=== PATIENT | female | born 1955 | race African-American/Black ===

== ENCOUNTER 2019-04-26 17:37 | Emergency (ER) | payer OTHER ==
[~2019-04-26] VITALS: Ht 157.5 cm; Wt 68.2 kg
[~2019-04-26 17:37] MED LIST: AMLODIPINE PO; AMLODIPINE5 MG PO; ASPIRIN CHEWABL81 MG OR; CARB/LEVO SR PO; CELEXA20 M1 PO; CELEXA20 MG PO; CEPHALEXIN500 M1 PO; CEPHALEXIN500 MG PO; CHEMOTHERAPY IV; CIPROFLOXACIN500 M1 OR; ENOXAPARIN40 MG/0.1 SC; FLEXERIL PO; FLUOXETINE PO; HYDROCO/APAP1 TA9 PO; IBUPROFEN600 MG PO; LOPRESSOR25 MG PO; METOPROL TAR25 MG PO; METOPROLOL SUCC25 MG OR; METOPROLOL TART25 MG PO; MOTRIN PM PO; NORVASC10 M1 PO; OXYCODONE/ACETA1 TA1 OR; PRAVASTATIN20 MG PO; PRILOSEC40 MG PO; PROMETHAZINE HC25 MG OR; PROZAC40 MG PO; SIMVASTATIN40 MG OR; SINEMET 25/1001 TA2 OR; SINEMET CR PO; SINEMET PO; TOPROL XL25 MG PO; TRASTUZUMAB IV; TYLENOL 500MG TAB PO; ULTRAM50 M1 PO
[2019-04-26 18:52] LABS: HEMATOCRIT 36.6 % (37.0-47.0); MEAN CELL VOLUME 91.3 fL CALC (80.0-100.0); MEAN CORPUSCULAR HGB 29.7 pG CALC (26.0-32.0); MEAN CORPUSCULAR HGB CONC 32.5 g/L CALC (32.0-36.0); NEUT# 1.94 thou/uL (2.00-7.15); RED BLOOD COUNT 4.01 mill/uL (4.20-5.60)
[2019-04-26 18:53] LABS: HEMOGLOBIN 11.9 g/dl (12.0-16.0)
[2019-04-26 19:16] LABS: URINE BLOOD DIPSTICK MODERATE (NEGATIVE); URINE COLOR YELLOW; URINE GLUCOSE - DIPSTICK NEGATIVE (NEGATIVE); URINE KETONE NEGATIVE (NEGATIVE); URINE LEUK ESTERASE NEGATIVE (NEGATIVE); URINE NITRITE - DIPSTICK NEGATIVE (Negative); URINE PH 5.5 (4.5-8.0); URINE PROTEIN - DIPSTICK TRACE mg/dL (NEG-TRACE); URINE SPECIFIC GRAVITY >=1.030; URINE UROBILINOGEN - DIPSTICK 0.2 E.U./dL (0.2)
[2019-04-26 19:18] LABS: URINE BILIRUBIN - DIPSTICK NEGATIVE (NEGATIVE)
[2019-04-26 19:20] LABS: ALKALINE PHOSPHATASE 113 u/l (38-126); ANION GAP 17 (6-22 (CALC)); BILIRUBIN, TOTAL 0.6 mg/dL (0.0-1.4); BUN 14 mg/dL (8-23); BUN/CREATININE RATIO 16 (12-20 (CALC)); CHLORIDE 104 mmol/l (95-108); CREATININE 0.9 mg/dL (0.5-1.0); GFR > 60 ML/MIN (>=60 (CALC)); GFR FOR AFR.AMER. > 60 ML/MIN (>=60 (CALC)); LIPASE 166 u/l (23-300); POTASSIUM 3.9 mmol/l (3.5-5.1); SGOT/AST 33 u/l (9-36); SODIUM 139 mmol/l (137-146); TOTAL PROTEIN 7.7 g/dL (6.3-8.2)
[2019-04-26 19:25] LABS: CARBON DIOXIDE 22 mmol/l (22-30)
[2019-04-26 19:30] LABS: URINE SQUAMOUS EPITHELIAL CELL FEW EPI/hpf (0-FEW); URINE WBC 0-2 WBC/hpf (0-5)
[2019-04-26 20:30] VITALS: BP 129/78
[2019-04-26] MEDS ORDERED: TRAMADOL HYDROC50 MG PO (20:59)
[2019-04-26] MEDS ORDERED: KEFLEX500 MG PO (20:59)
== END 2019-04-26 21:22 | disposition home or self-care (01) | DRG 690 ==
LOC: ED 17:37
PROVIDERS: Family Medicine
DX: N30.01 Acute cystitis with hematuria (principal); I10 Essential (primary) hypertension; G20 Parkinson's disease
CPT/HCPCS: Q9967

== ENCOUNTER 2021-01-06 05:25 | Emergency (ER) | payer OTHER ==
[~2021-01-06] VITALS: Ht 157.5 cm; Wt 70.0 kg
[~2021-01-06 05:25] MED LIST changes: +KEFLEX500 MG PO; +TRAMADOL HYDROC50 MG PO
[2021-01-06 06:27] LABS: HEMATOCRIT 37.8 % (37.0-47.0); HEMOGLOBIN 12.4 g/dl (12.0-16.0); IMMATURE GRANULOCYTES 0.1 % (0.0-5.0); MEAN CELL VOLUME 90.4 fL CALC (80.0-100.0); MEAN CORPUSCULAR HGB 29.7 pG CALC (26.0-32.0); MEAN CORPUSCULAR HGB CONC 32.8 g/dL CAL (32.0-36.0); NEUT# 10.37 thou/uL (2.00-7.15); RED BLOOD COUNT 4.18 mill/uL (4.20-5.60); RED CELL DISTRI WIDTH 16.4 % (11.5-15.5)
[2021-01-06 06:55] LABS: ALBUMIN 3.8 g/dL (3.2-5.0); ALKALINE PHOSPHATASE 154 u/l (38-126); BUN 12 mg/dL (8-23); BUN/CREATININE RATIO 17 (12-20 (CALC)); CHLORIDE 101 mmol/l (95-108); CREATININE 0.7 mg/dL (0.5-1.0); GFR > 60 ML/MIN (>=60 (CALC)); GFR FOR AFR.AMER. > 60 ML/MIN (>=60 (CALC)); POTASSIUM 3.6 mmol/l (3.5-5.1); SGOT/AST 46 u/l (9-36); SODIUM 135 mmol/l (137-146); TOTAL PROTEIN 7.4 g/dL (6.3-8.2)
[2021-01-06 06:58] LABS: ANION GAP 20 (6-22 (CALC)); BILIRUBIN, TOTAL 0.7 mg/dL (0.0-1.4); CARBON DIOXIDE 18 mmol/l (22-30)
[2021-01-06 07:44] LABS: URINE BLOOD DIPSTICK SMALL (NEGATIVE); URINE GLUCOSE - DIPSTICK NEGATIVE (NEGATIVE); URINE KETONE TRACE mg/dL (NEGATIVE); URINE LEUK ESTERASE NEGATIVE (NEGATIVE); URINE PH 5.5 (4.5-8.0); URINE PROTEIN - DIPSTICK TRACE mg/dL (NEG-TRACE); URINE SPECIFIC GRAVITY >=1.030
[2021-01-06 07:53] LABS: URINE BILIRUBIN - DIPSTICK MODERATE (NEGATIVE); URINE COLOR DK. YELLOW; URINE NITRITE - DIPSTICK NEGATIVE (Negative)
[2021-01-06 07:54] LABS: URINE EPITHELIAL CELLS FEW EPI/hpf (0-FEW); URINE MUCUS MODERATE hpf (NONE-FEW); URINE RBC 0-2 RBC/hpf (0-5)
[2021-01-06] MEDS ORDERED: FLEXERIL5 M1 PO (08:00)
[2021-01-06] MEDS ORDERED: ULTRAM50 MG PO (08:00)
[2021-01-06 08:33] VITALS: BP 96/64
== END 2021-01-06 08:39 | disposition home or self-care (01) | DRG 552 ==
LOC: ED 05:25
PROVIDERS: Emergency Medicine
DX: M54.6 Pain in thoracic spine (principal); D72.829 Elevated white blood cell count, unspecified; I10 Essential (primary) hypertension; F41.9 Anxiety disorder, unspecified; K21.9 Gastro-esophageal reflux disease without esophagitis; G20 Parkinson's disease; I89.0 Lymphedema, not elsewhere classified

== ENCOUNTER 2021-03-24 20:47 | Emergency (ER) | payer OTHER ==
[~2021-03-24] VITALS: Ht 157.5 cm; Wt 61.3 kg
[~2021-03-24 20:47] MED LIST changes: +FLEXERIL5 M1 PO; +ULTRAM50 MG PO
[2021-03-24 21:16] LABS: HEMATOCRIT 35.5 % (37.0-47.0); HEMOGLOBIN 11.4 g/dl (12.0-16.0); IMMATURE GRANULOCYTES 0.3 % (0.0-5.0); MEAN CORPUSCULAR HGB 31.9 pG CALC (26.0-32.0); MEAN CORPUSCULAR HGB CONC 32.1 g/dL CAL (32.0-36.0); NEUT# 2.07 thou/uL (2.00-7.15); RED BLOOD COUNT 3.57 mill/uL (4.20-5.60); RED CELL DISTRI WIDTH 16.9 % (11.5-15.5)
[2021-03-24 21:18] LABS: MEAN CELL VOLUME 99.4 fL CALC (80.0-100.0)
[2021-03-24 21:28] LABS: ALBUMIN 3.6 g/dL (3.2-5.0); ALKALINE PHOSPHATASE 85 u/l (38-126); BUN 12 mg/dL (8-23); BUN/CREATININE RATIO 19 (12-20 (CALC)); CARBON DIOXIDE 21 mmol/l (22-30); CHLORIDE 111 mmol/l (95-108); CREATININE 0.6 mg/dL (0.5-1.0); GFR > 60 ML/MIN (>=60 (CALC)); GFR FOR AFR.AMER. > 60 ML/MIN (>=60 (CALC)); POTASSIUM 3.1 mmol/l (3.5-5.1); SGOT/AST 36 u/l (9-36); TOTAL PROTEIN 6.9 g/dL (6.3-8.2)
[2021-03-24 21:40] LABS: MYOGLOBIN 39 ng/mL (0 - 62)
[2021-03-24 21:44] LABS: ANION GAP 13 (6-22 (CALC)); BILIRUBIN, TOTAL 0.4 mg/dL (0.0-1.4); SODIUM 142 mmol/l (137-146)
[2021-03-24 22:03] LABS: URINE BILIRUBIN - DIPSTICK NEGATIVE (NEGATIVE); URINE BLOOD DIPSTICK TRACE-INTACT (NEGATIVE); URINE COLOR YELLOW; URINE GLUCOSE - DIPSTICK NEGATIVE (NEGATIVE); URINE KETONE TRACE mg/dL (NEGATIVE); URINE PROTEIN - DIPSTICK NEGATIVE (NEG-TRACE); URINE SPECIFIC GRAVITY 1.015; URINE UROBILINOGEN - DIPSTICK 0.2 E.U./dL (0.2)
[2021-03-24 22:05] LABS: URINE LEUK ESTERASE SMALL (NEGATIVE); URINE NITRITE - DIPSTICK NEGATIVE (Negative)
[2021-03-24 22:21] LABS: URINE BACTERIA MODERATE hpf; URINE MUCUS FEW hpf (NONE-FEW); URINE SQUAMOUS EPITHELIAL CELL MANY EPI/hpf (0-FEW)
[2021-03-24] MEDS ORDERED: K-DUR/KLOR-CON20 MEQ PO (22:36)
[2021-03-24 22:45] VITALS: BP 129/60
== END 2021-03-24 22:50 | disposition home or self-care (01) | DRG 948 ==
LOC: ED 20:47
PROVIDERS: Family Medicine
DX: R41.82 Altered mental status, unspecified (principal); E87.6 Hypokalemia; I10 Essential (primary) hypertension; F41.9 Anxiety disorder, unspecified; K21.9 Gastro-esophageal reflux disease without esophagitis; G20 Parkinson's disease; Z85.3 Personal history of malignant neoplasm of breast

== ENCOUNTER 2021-05-15 04:12 | Observation (INO) | payer OTHER ==
[~2021-05-15] VITALS: Ht 157.5 cm; Wt 60.0 kg
[~2021-05-15 04:12] MED LIST changes: +K-DUR/KLOR-CON20 MEQ PO; -TYLENOL 500MG TAB PO; +TYLENOL500 MG PO
--- NOTE | 2021-05-15 07:12 | NUR ---
RECEIVED BEDSIDE REPORT FROM NURSE. PATIENT NOT IN ACUTE DISTRESS.
--- NOTE | 2021-05-15 08:00 | NUR ---
Reassessment of patient completed. No distress noted.
[2021-05-15 08:04] LABS: IMMATURE GRANULOCYTES 0.3 % (0.0-5.0); MEAN CORPUSCULAR HGB 32.7 pG CALC (26.0-32.0); NEUT# 6.32 thou/uL (2.00-7.15); RED CELL DISTRI WIDTH 13.7 % (11.5-15.5)
[2021-05-15 08:05] LABS: HEMATOCRIT 29.7 % (37.0-47.0); HEMOGLOBIN 9.8 g/dl (12.0-16.0)
[2021-05-15 08:50] LABS: ALKALINE PHOSPHATASE 97 u/l (38-126); ANION GAP 8 (6-22 (CALC)); BILIRUBIN, TOTAL 0.6 mg/dL (0.0-1.4); BUN 10 mg/dL (8-23); BUN/CREATININE RATIO 15 (12-20 (CALC)); CARBON DIOXIDE 24 mmol/l (22-30); CHLORIDE 110 mmol/l (95-108); CREATININE 0.7 mg/dL (0.5-1.0); GFR > 60 ML/MIN (>=60 (CALC)); GFR FOR AFR.AMER. > 60 ML/MIN (>=60 (CALC)); POTASSIUM 3.5 mmol/l (3.5-5.1); SGOT/AST 21 u/l (9-36); SODIUM 139 mmol/l (137-146)
--- NOTE | 2021-05-15 09:15 | NUR ---
Reassessment of patient completed. No distress noted.
--- NOTE | 2021-05-15 10:00 | NUR ---
Reassessment of patient completed. No distress noted.
--- NOTE | 2021-05-15 11:00 | NUR ---
Reassessment of patient completed. No distress noted.
--- NOTE | 2021-05-15 12:00 | NUR ---
Reassessment of patient completed. No distress noted.
--- NOTE | 2021-05-15 13:00 | NUR ---
Reassessment of patient completed. No distress noted.
[2021-05-15 14:00] VITALS: BP 117/83
--- NOTE | 2021-05-15 14:00 | NUR ---
Reassessment of patient completed. No distress noted. PATIENT TRANSPORTED TO ICU BED 4 OVERFLOW. REPORT CALLED PRIOR TO TRANSPORTING ON MONITOR. HAND OFF REPORT GIVEN BEDSIDE ALSO TO RAJAT.
--- NOTE | 2021-05-15 14:01 | NUR ---
DAVID WONG is a 65 year old Female. Admitted for left arm swelling she is being treated for cellulitis with Ceftriaxone 1 g24h and Vancoomycin 1 q12h No cultures taken or pending Ht: 62 in, Wt: 60 kg, DW: 60 Kg, SCr: 0.7 mL/min, CrCl (calc) = 77.9 ml/min WBC: 7.5 thou/uL, HR: 72 beats/min, BP: 141/73 mmHg, RR 17 breaths/min, Sa02: 98 % Trough= will be taken on 05/17/21 at 0230 Goal level is 10-15 mg/L. 1. Current dose: Vancomycin 1 g IV q12h at 1500, 0300 2. Check trough on 05/17/21 at 0230 Pharmacy will continue to follow.
[2021-05-15 15:00] VITALS: BP 132/76
[2021-05-15] MEDS ORDERED: CYMBALTA20 MG PO (15:25)
[2021-05-15] MEDS ORDERED: REMERON SOLTAB15 MG PO (15:27)
[2021-05-15] MEDS ORDERED: TRAMADOL HYDROC50 M1 PO (15:28)
[2021-05-15] MEDS ORDERED: MOBIC7.5 M1 PO (15:34)
--- NOTE | 2021-05-15 17:24 | NUR ---
PT ARRIVED TO ROOM AT 1410, PLACED ON MONITOR, AND IN PT GOWN. NO S/S OF DISTRESS NOTED. MEDICATED PER EMAR.
[2021-05-15 18:32] LABS: URINE BILIRUBIN - DIPSTICK NEGATIVE (NEGATIVE); URINE BLOOD DIPSTICK SMALL (NEGATIVE); URINE COLOR YELLOW; URINE GLUCOSE - DIPSTICK NEGATIVE (NEGATIVE); URINE KETONE NEGATIVE (NEGATIVE); URINE LEUK ESTERASE NEGATIVE (NEGATIVE); URINE PH 6.5 (4.5-8.0); URINE PROTEIN - DIPSTICK NEGATIVE (NEG-TRACE); URINE SPECIFIC GRAVITY 1.015; URINE UROBILINOGEN - DIPSTICK 0.2 E.U./dL (0.2)
[2021-05-15 18:42] LABS: URINE NITRITE - DIPSTICK NEGATIVE (Negative)
[2021-05-15 18:43] LABS: URINE SQUAMOUS EPITHELIAL CELL FEW EPI/hpf (0-FEW); URINE WBC 0-2 WBC/hpf (0-5)
--- NOTE | 2021-05-15 19:05 | NUR ---
REPORT FROM RAJAT FLANAGAN. ASSUMED PT CARE.
[2021-05-15 20:00] VITALS: BP 118/59
--- NOTE | 2021-05-15 20:20 | NUR ---
PT NOTED RESTING IN BED. PT WAKES EASILY. A&OX4. NO APPARENT DISTRESS NOTED. PT C/O PAIN IN LEFT ARM 09/11, PT REFUSED TYLENOL STATES WILL WAIT FOR LORTAB WHEN ITS DUE. LEFT ARM ELEVATED ON PILLOWS. VSS. IV SITE APPEARS HEALTHY. MONITORS IN PLACE. DISCUSSED POC AND SAFETY. PT VERBALIZED UNDERSTANDING. PT DENIES ANY CURRENT WANTS OR NEEDS. CALL LIGHT WITHIN REACH. WILL CONTINUE TO MONITOR.
--- NOTE | 2021-05-15 22:52 | NUR ---
PT MEDICATED FOR PAIN IN LEFT ARM 6/10 WITH PRN LORTAB.
[2021-05-16 00:14] VITALS: BP 131/65
[2021-05-16 02:00] VITALS: BP 115/59
--- NOTE | 2021-05-16 03:21 | NUR ---
PT RESTING IN BED WITH EYES CLOSED. NO APPARENT DISTRESS NOTED. RESPIRATIONS EVEN AND UNLABORED. VSS. CALL LIGHT WITHIN REACH. WILL CONTINUE TO MONITOR.
[2021-05-16 05:45] VITALS: BP 108/63
[2021-05-16 06:42] LABS: HEMATOCRIT 30.6 % (37.0-47.0); HEMOGLOBIN 10.4 g/dl (12.0-16.0); MEAN CELL VOLUME 95.9 fL CALC (80.0-100.0); MEAN CORPUSCULAR HGB 32.6 pG CALC (26.0-32.0); RED BLOOD COUNT 3.19 mill/uL (4.20-5.60); RED CELL DISTRI WIDTH 13.3 % (11.5-15.5)
[2021-05-16 07:13] LABS: ANION GAP 11 (6-22 (CALC)); BUN 9 mg/dL (8-23); BUN/CREATININE RATIO 15 (12-20 (CALC)); CARBON DIOXIDE 21 mmol/l (22-30); CHLORIDE 109 mmol/l (95-108); CREATININE 0.6 mg/dL (0.5-1.0); GFR > 60 ML/MIN (>=60 (CALC)); GFR FOR AFR.AMER. > 60 ML/MIN (>=60 (CALC)); MAGNESIUM 1.3 mg/dL (1.6-2.3); SODIUM 137 mmol/l (137-146)
[2021-05-16 07:26] LABS: POTASSIUM 4.4 mmol/l (3.5-5.1)
[2021-05-16 08:00] VITALS: BP 119/75
--- NOTE | 2021-05-16 08:05 | NUR ---
MD ROUNDING ON PT
[2021-05-16] MEDS ORDERED: DOXYCYCLINE100 MG PO (08:45)
--- NOTE | 2021-05-16 11:47 | NUR ---
PT TRANSPORTED OUT IN A WHEELCHAIR TO A PRIVATE VEHICLE. NO S/S OF DISTRESS NOTED, PT INDICATED UNDERSTANDING OF DISCHARGE AND SCRIPT INSTRUCTIONS. ALL QUESTIONS ANSWERED. IVS REMOVED PER POLICY,
== END 2021-05-16 11:47 | disposition home or self-care (01) | DRG 603 ==
LOC: ED 04:12 → ED-I 11:25 → ED 11:39 → ICU 11:40
PROVIDERS: Emergency Medicine; Family Medicine; Nurse Practitioner; ADMIT Internal Medicine; ATTEND Internal Medicine
DX: L03.114 Cellulitis of left upper limb (principal); J06.9 Acute upper respiratory infection, unspecified; I97.2 Postmastectomy lymphedema syndrome; I10 Essential (primary) hypertension; E78.5 Hyperlipidemia, unspecified; F41.9 Anxiety disorder, unspecified; K21.9 Gastro-esophageal reflux disease without esophagitis; G20 Parkinson's disease; Y83.6 Removal of other organ (partial) (total) as the cause of abnormal reaction of the patient, or of later complication, without mention of misadventure at the time of the procedure; Z80.3 Family history of malignant neoplasm of breast; Z90.12 Acquired absence of left breast and nipple; Z20.822 Contact with and (suspected) exposure to COVID-19
CPT/HCPCS: J1650; J3475; Q9967